=== PATIENT | male | born 2000 | race African-American/Black ===

== ENCOUNTER 2023-03-14 23:52 | Emergency (ER) | payer OTHER ==
[~2023-03-14] VITALS: Ht 200.7 cm; Wt 114.0 kg
[2023-03-14 23:53] VITALS: TEMP 98.9
[2023-03-15] MEDS ORDERED: LIDOCAINE 1% 10 ML VIAL SQ ONE (01:00)
[2023-03-15] MEDS ORDERED: LIDOCAINE/PF 1% 2 ML VIAL SQ ONE (01:00)
[2023-03-15 01:37] VITALS: BP 145/86; PULSE 52; RESP 16
== END 2023-03-15 02:27 | disposition home or self-care (01) ==
LOC: EMS 23:58
DX: S01.81XA Laceration without foreign body of other part of head, initial encounter (principal); W01.0XXA Fall on same level from slipping, tripping and stumbling without subsequent striking against object, initial encounter; Y93.89 Activity, other specified; Y92.89 Other specified places as the place of occurrence of the external cause; Y99.8 Other external cause status
CPT/HCPCS: 99282; 12011; J3490